=== PATIENT | female | born 1985 | race African-American/Black ===

== ENCOUNTER 2018-03-12 20:42 | Emergency (ER) | payer MEDICAID, OTHER ==
[~2018-03-12] VITALS: Ht 172.7 cm; Wt 86.0 kg
[2018-03-12] MEDS ORDERED: ACETAMINOPHEN 325MG TABLET PO ONE (21:30)
[2018-03-12 22:28] LABS: CLARITY URINE CLOUDY (CLEAR); COLOR URINE YELLOW (YELLOW); KETONES URINE TRACE (NEGATIVE); LEUKOCYTE ESTERASE URINE NEGATIVE (NEGATIVE); NITRITE URINE NEGATIVE (NEGATIVE); OCCULT BLOOD URINE NEGATIVE (NEGATIVE); PROTEIN URINE 3+ (NEGATIVE); SPECIFIC GRAVITY URINE 1.037 (1.005-1.030)
[2018-03-12 23:49] VITALS: BP 102/56
== END 2018-03-12 23:57 | disposition home or self-care (01) ==
LOC: ER 20:42
DX: S61.259A Open bite of unspecified finger without damage to nail, initial encounter (principal); O26.891 Other specified pregnancy related conditions, first trimester; O99.331 Smoking (tobacco) complicating pregnancy, first trimester; I10 Essential (primary) hypertension; Z3A.09 9 weeks gestation of pregnancy; Y04.1XXA Assault by human bite, initial encounter; Y93.89 Activity, other specified; Y92.9 Unspecified place or not applicable
CPT/HCPCS: 76830; 76856; 81003; 81025; 99285

== ENCOUNTER 2018-09-24 17:19 | Observation (INO) | payer MEDICAID ==
[~2018-09-24] VITALS: Ht 162.6 cm; Wt 104.3 kg
== END 2018-09-24 22:50 | disposition home or self-care (01) ==
LOC: 8 EST LDRP 17:19
PROVIDERS: ADMIT Obstetrics & Gynecology; ATTEND Obstetrics & Gynecology
DX: O62.9 Abnormality of forces of labor, unspecified (principal); Z3A.36 36 weeks gestation of pregnancy
CPT/HCPCS: 76805; G0378; 99281

== ENCOUNTER 2018-10-05 08:59 | Inpatient (IN) | payer MEDICAID ==
[~2018-10-05] VITALS: Ht 162.6 cm; Wt 104.3 kg
[2018-10-05] MEDS: LACTATED RINGERS 1,000 ML IV SCH ×2 (10:10→11:50)
[2018-10-05] MEDS ORDERED: DEXT 5%/LR + PITOCIN 20UNITS/L 1,000 ML IV SCH (10:24)
[2018-10-05] MEDS ORDERED: NALOXONE HCL 0.4 MG/ML 1ML VIAL IM PRN (10:30)
[2018-10-05] MEDS ORDERED: METHYLERGONOVINE MALEATE 0.2 MG/ML IM PRN (10:30)
[2018-10-05 11:05] LABS: PARTIAL THROMBOPLASTIN TIME 29.9 sec (23.4-31.0)
[2018-10-05 11:07] LABS: BASOPHILS % 0.1 % (0.0-2.0); EOSINOPHILS % 0.7 % (0.0-5.0); HEMATOCRIT. 32.9 % (36.0-48.0); HEMOGLOBIN. 11.3 g/dL (12.0-16.0); MEAN CORPUSCULAR HEMOGLOBIN 32.2 pg (28.0-32.0); MEAN CORPUSCULAR VOLUME 93.6 fL (81.0-99.0); MEAN PLATELET VOLUME 7.2 fl (7.4-10.4); MONOCYTES % 11.3 % (2.0-8.0); NEUTROPHILS % 57.9 % (40.0-76.0); PLATELET 286 x1000/uL (130-400); RED BLOOD CELL COUNT 3.52 mill/uL (4.2-5.4); RED CELL DISTRIBUTION WIDTH 14.5 % (11.6-14.6)
[2018-10-05 11:15] LABS: CHLORIDE 106 mEq/L (98-107)
[2018-10-05 12:28] LABS: CLARITY URINE CLOUDY (CLEAR); COLOR URINE YELLOW (YELLOW); KETONES URINE NEGATIVE (NEGATIVE); LEUKOCYTE ESTERASE URINE NEGATIVE (NEGATIVE); NITRITE URINE NEGATIVE (NEGATIVE); OCCULT BLOOD URINE 2+ (NEGATIVE); PH URINE 6.5 (4.5-8.0); PROTEIN URINE NEGATIVE (NEGATIVE); SPECIFIC GRAVITY URINE 1.003 (1.005-1.030); UROBILINOGEN URINE 0.2 E.U./dL (0.2-1.0)
[2018-10-05 12:59] LABS: CANNABINOID URINE SCREEN NEGATIVE (NEGATIVE)
[2018-10-05 13:00] LABS: *BARBITURATES SCREEN URINE NEGATIVE (NEGATIVE); *BENZODIAZEPINES SCREEN URINE NEGATIVE (NEGATIVE); *COCAINE SCREEN URINE NEGATIVE (NEGATIVE); METHADONE URINE SCREEN NEGATIVE (NEGATIVE); OPIATES URINE SCREEN NEGATIVE (NEGATIVE)
[2018-10-05 13:01] LABS: PHENCYCLIDINE URINE SCREEN NEGATIVE (NEGATIVE)
[2018-10-05 13:11] LABS: *AMPHETAMINES SCREEN URINE PRESUMTIVE POSITIVE (NEGATIVE)
[2018-10-05 13:28] LABS: HEPATITIS B SURFACE ANTIGEN NEGATIVE
[2018-10-05] MEDS ORDERED: CITRIC ACID/SODIUM CITRATE SOLN 30ML UDC PO NR ×2 (14:00→16:00)
[2018-10-05] MEDS ORDERED: CEFAZOLIN SODIUM 1000MG/VIAL ONE (14:03)
[2018-10-05] MEDS ORDERED: OXYTOCIN 10 UNITS/ML 1ML ONE (14:03)
[2018-10-05] MEDS ORDERED: ONDANSETRON HCL 4MG/2ML INJ ONE (14:04)
[2018-10-05] MEDS ORDERED: BUPIVACAINE HCL/DEXTROSE/PF 0.75% 2ML AMP INJ ONE (14:06)
[2018-10-05] MEDS ORDERED: MORPHINE SULFATE/PF 1MG/ML 10ML AMP ONE (14:06)
[2018-10-05] MEDS ORDERED: FENTANYL CITRATE/PF 50MCG/ML 2ML VIAL ONE (14:06)
[2018-10-05] MEDS ORDERED: TETANUS, DIPHTHERIA, PERTUSSIS VAC/PF 0.5ML (>7YR OLD) IM ONE (15:00)
[2018-10-05] MEDS ORDERED: BISACODYL 10MG SUPP PR PRN (15:00)
[2018-10-05] MEDS ORDERED: RHO(D) IMMUNE GLOBULIN 300 MCG/SYR IM PRN (15:00)
[2018-10-05] MEDS ORDERED: DIPHENHYDRAMINE 25MG CAPSULE PO PRN (15:00)
[2018-10-05] MEDS ORDERED: ONDANSETRON HCL 4MG/2ML INJ IV PRN ×2 (15:00→16:00)
[2018-10-05] MEDS ORDERED: INFLUENZA VIRUS VACCINE(AFLURIA) 0.5ML SYR IM ONE (15:00)
[2018-10-05] MEDS ORDERED: LANOLIN OINT 0.25 GM TUBE TOP PRN (15:00)
[2018-10-05] MEDS ORDERED: HYDROCODONE/ACETAMINOPHEN 5/325MG TABLET PO PRN (15:00)
[2018-10-05] MEDS ORDERED: IBUPROFEN 400MG TABLET PO PRN (15:00)
[2018-10-05] MEDS: DEXT 5%/LR + PITOCIN 20UNITS/L 1,000 ML IV SCH ×2 (15:30→21:50)
[2018-10-05] MEDS ORDERED: MEPERIDINE HCL/PF 25MG/ML CPJ IV PRN (16:00)
[2018-10-05] MEDS ORDERED: METOCLOPRAMIDE HCL 10MG/2ML VIAL IV PRN (16:00)
[2018-10-05] MEDS ORDERED: KETOROLAC 30MG/ML VIAL IV PRN (16:00)
[2018-10-05 18:00] VITALS: BP 111/82
[2018-10-05 18:15] VITALS: BP 94/48
[2018-10-05 18:34] VITALS: BP 108/64
[2018-10-05] MEDS: DOCUSATE SODIUM 100MG CAPSULE PO SCH (21:00)
[2018-10-05 22:00] VITALS: BP 105/55
[2018-10-06] MEDS: HYDROMORPHONE HCL/PF 2MG/ML CPJ IM PRN ×2 (04:16→08:11)
[2018-10-06 07:43] LABS: BASOPHILS % 0.2 % (0.0-2.0); EOSINOPHILS % 1.3 % (0.0-5.0); HEMATOCRIT. 33.6 % (36.0-48.0); HEMOGLOBIN. 11.4 g/dL (12.0-16.0); LYMPHOCYTES % 19.1 % (20.0-50.0); MEAN CORPUSCULAR HEMOGLOBIN 31.5 pg (28.0-32.0); MEAN CORPUSCULAR VOLUME 93.1 fL (81.0-99.0); MEAN PLATELET VOLUME 7.6 fl (7.4-10.4); MONOCYTES % 6.5 % (2.0-8.0); NEUTROPHILS % 72.9 % (40.0-76.0); PLATELET 294 x1000/uL (130-400); RED BLOOD CELL COUNT 3.61 mill/uL (4.2-5.4); RED CELL DISTRIBUTION WIDTH 14.3 % (11.6-14.6)
[2018-10-06 08:00] VITALS: BP 98/53
[2018-10-06] MEDS: PRENATAL VIT/FE FUMARATE/FA TABLET PO SCH (08:05)
[2018-10-06] MEDS: FERROUS SULFATE 325MG TABLET PO SCH ×4 (08:05→17:56)
[2018-10-06] MEDS: SIMETHICONE 80MG TABLET CHEW PO SCH ×4 (08:07→21:00)
[2018-10-06] MEDS: IBUPROFEN 800MG TABLET PO PRN ×2 (13:55→20:44)
[2018-10-06 17:10] VITALS: BP 117/58
[2018-10-06 22:00] VITALS: BP 105/57
[2018-10-07 06:00] VITALS: BP 103/59
[2018-10-07] MEDS: IBUPROFEN 800MG TABLET PO PRN ×3 (07:53→21:26)
[2018-10-07] MEDS: PRENATAL VIT/FE FUMARATE/FA TABLET PO SCH (07:53)
[2018-10-07] MEDS: SIMETHICONE 80MG TABLET CHEW PO SCH ×4 (08:00→21:27)
[2018-10-07] MEDS: FERROUS SULFATE 325MG TABLET PO SCH ×2 (11:18→16:45)
[2018-10-07 19:42] VITALS: BP 112/62
[2018-10-07] MEDS: DOCUSATE SODIUM 100MG CAPSULE PO SCH (21:27)
[2018-10-08] MEDS ORDERED: TETANUS, DIPHTHERIA, PERTUSSIS VAC/PF 0.5ML (>7YR OLD) IM ONE (06:00)
[2018-10-08] MEDS: IBUPROFEN 800MG TABLET PO PRN (06:59)
[2018-10-08 08:00] VITALS: BP 113/62
[2018-10-08] MEDS: SIMETHICONE 80MG TABLET CHEW PO SCH (08:00)
[2018-10-08] MEDS: FERROUS SULFATE 325MG TABLET PO SCH (08:52)
[2018-10-08] MEDS: PRENATAL VIT/FE FUMARATE/FA TABLET PO SCH (08:52)
[2018-10-11 05:19] LABS: AMPHETAMINE CONF URINE Positive (.)
== END 2018-10-08 12:55 | disposition home or self-care (01) | DRG 540 ==
LOC: OBSVTOIN 08:59 → 8 EST LDRP 08:59 → 8EST 17:50
PROVIDERS: ADMIT Specialist; ATTEND Specialist
PROC: 10D00Z1 Extraction of Products of Conception, Low, Open Approach (ICD-10-PCS; principal; 2018-10-05)
DX: O34.211 Maternal care for low transverse scar from previous cesarean delivery (principal); O99.324 Drug use complicating childbirth; D64.9 Anemia, unspecified; F43.10 Post-traumatic stress disorder, unspecified; O99.02 Anemia complicating childbirth; F15.10 Other stimulant abuse, uncomplicated; F10.10 Alcohol abuse, uncomplicated; O99.334 Smoking (tobacco) complicating childbirth; F17.210 Nicotine dependence, cigarettes, uncomplicated; O99.314 Alcohol use complicating childbirth; O99.344 Other mental disorders complicating childbirth; Z37.0 Single live birth; Z3A.38 38 weeks gestation of pregnancy
CPT/HCPCS: 36415; 80305; 80307; 86592; 86703; 86762; 86850; 86900; 87340; 88307; 90686; 90715; 99281; J0690; J1170; J1885; J2274; J2405; J2590; J3010; J3490; J7120; A4315

== ENCOUNTER 2022-10-04 15:57 | Emergency (ER) | payer MEDICAID ==
[~2022-10-04] VITALS: Ht 162.6 cm; Wt 99.0 kg
[2022-10-04 16:34] VITALS: BP 122/80
== END 2022-10-04 23:15 | disposition left against medical advice (07) ==
LOC: ER 15:57
DX: M25.561 Pain in right knee (principal); Z53.21 Procedure and treatment not carried out due to patient leaving prior to being seen by health care provider
CPT/HCPCS: 99281